=== PATIENT | male | born 1935 | race Caucasian/White ===

== ENCOUNTER 2017-11-13 10:40 | Day surgery (SDC) | payer OTHER ==
--- NOTE | 2017-11-12 09:23 | RAD REPORT ---
EXAM DESCRIPTION: RADOP - Outpt Chest Pa/Lat (2 Views) - 11/12/2017 8:36 am CLINICAL HISTORY: Preop for bladder surgery COMPARISON: None FINDINGS: The lungs appear clear of acute infiltrate. The heart is normal size. IMPRESSION: No acute abnormality is displayed
--- NOTE | 2017-11-13 07:39 | EKG ---
Test Date: 2017-11-12 Test Time: 08:22:52 [employer] Manager: DAVDI MEASUREMENT RESULTS: Intervals: Rate: 70 AR: 144 QRSD: 90 QT: 368 QTc: 397 [place]: P: 29 AR: 144 QRS: 36 T: 43 INTERPRETIVE STATEMENTS: Normal sinus rhythm Normal ECG No previous ECG available for comparison Electronically Signed On 11-13-17 07:35:15 CDT by Mor Shirley
[2017-11-13] MEDS ORDERED: NA CHLORIDE 0.9% 1,000 ML ONE ×2 (11:17→13:48)
[2017-11-13] MEDS ORDERED: GENTAMICIN 80 MG/100 ML BAG 80 MG/100 ML BAG IV ONE (11:17)
[2017-11-13] MEDS ORDERED: PROPOFOL 200 MG/20 ML VIAL IV ONE (11:55)
[2017-11-13] MEDS ORDERED: FENTANYL CITR 100 MCG/2 ML ONE (11:55)
[2017-11-13] MEDS ORDERED: LIDOCAINE 2% MPF 5 ML VIAL ONE (11:55)
[2017-11-13] MEDS ORDERED: KETOROLAC 30 MG/ML INJ ONE (13:03)
[2017-11-13] MEDS ORDERED: OXYBUTYNIN CHLORIDE 5 MG TAB ONE (14:25)
== END 2017-11-13 14:33 | disposition home or self-care (01) ==
LOC: OR 10:40
PROVIDERS: ATTEND Urology
PROC: 0T7D8DZ Dilation of Urethra with Intraluminal Device, Via Natural or Artificial Opening Endoscopic (ICD-10-PCS; principal; 2017-11-13 12:00)
DX: N40.1 Benign prostatic hyperplasia with lower urinary tract symptoms (principal); R39.12 Poor urinary stream; E11.9 Type 2 diabetes mellitus without complications; I10 Essential (primary) hypertension; E78.5 Hyperlipidemia, unspecified; K21.9 Gastro-esophageal reflux disease without esophagitis; E07.9 Disorder of thyroid, unspecified; M19.90 Unspecified osteoarthritis, unspecified site; Z88.3 Allergy status to other anti-infective agents; Z88.6 Allergy status to analgesic agent; Z88.8 Allergy status to other drugs, medicaments and biological substances; Z83.6 Family history of other diseases of the respiratory system
CPT/HCPCS: 52441; 52442 ×3; 71046; 82962 ×2; 93005; J1580; J3010; J7030

== ENCOUNTER 2020-12-21 05:43 | Inpatient (IN) | payer OTHER ==
--- NOTE | 2020-12-15 12:27 | RAD REPORT ---
EXAM DESCRIPTION: RAD - Chest Pa And Lat (2 Views) - 12/15/2020 12:20 pm CLINICAL HISTORY: preop Chest pain. COMPARISON: <Comparisons> FINDINGS: The lungs are emphysematous but clear. The heart size with a tortuous thoracic aorta. No d isplaced fractures. IMPRESSION: Mild diffuse COPD.
[2020-12-15 12:41] LABS: Potassium 4.6 mmol/L (3.5-5.1)
[2020-12-15 12:44] LABS: Absolute Lymphocytes (CBC) 1.2 K/uL (0.7-4.9); Basophils % 0.7 % (0-1.3); Lymphocytes % 22.2 % (15.3-44.8); MPV 9.3 fL (7.6-11.3); RBC Red Blood Cell Count 4.49 M/uL (4.33-5.43)
[2020-12-15 12:47] LABS: Protime INR 1.05
[2020-12-21] MEDS ORDERED: NA CHLORIDE 0.9% 1,000 ML ONE ×2 (06:23→08:39)
[2020-12-21] MEDS ORDERED: CEFAZOLIN/SWI 2gm 2 GM/20 ML SYR ONE (06:23)
[2020-12-21] MEDS ORDERED: dexAMETHasone 10 MG/ML VIAL ONE ×4 (06:31→08:57)
[2020-12-21] MEDS ORDERED: propofoL 200 MG/20 ML VIAL IV ONE ×2 (06:31→07:42)
[2020-12-21] MEDS ORDERED: FENTANYL CITR 100 MCG/2 ML ONE ×3 (06:31→11:28)
[2020-12-21] MEDS ORDERED: LIDOCAINE 1% MPF 5 ML VIAL ONE ×3 (06:31→08:49)
[2020-12-21] MEDS ORDERED: MIDAZOLAM HCL 2 MG/2 ML INJ ONE ×2 (06:31→07:42)
[2020-12-21] MEDS ORDERED: LIDOCAINE 2% MPF 5 ML VIAL ONE ×2 (06:31→07:42)
[2020-12-21] MEDS ORDERED: NS 0.9% VIAL 10 ML ONE ×2 (06:32→08:47)
[2020-12-21] MEDS ORDERED: CELECOXIB 100 MG CAPSULE ONE (06:42)
[2020-12-21] MEDS ORDERED: methocarbamoL 500 MG TAB ONE (06:42)
[2020-12-21] MEDS ORDERED: ACETAMINOPHEN 500 MG TAB ONE (06:42)
[2020-12-21] MEDS ORDERED: BUPIVACAINE 0.25% PF 30 ML VIAL ONE (06:49)
[2020-12-21] MEDS ORDERED: Ringers Lactate 0 ML IV ONE (07:35)
[2020-12-21] MEDS ORDERED: HYDROMORPHONE HCL 1 MG/ML INJ ONE ×2 (07:39→07:42)
[2020-12-21] MEDS ORDERED: NS 0.9% VIAL 0 ML ONE (07:42)
[2020-12-21] MEDS ORDERED: TRANEXAMIC ACID 1,000 MG in NA CHLORIDE 0.9% 50 ML IV SCH (08:00)
[2020-12-21] MEDS ORDERED: KETAMINE HCL 500 MG/5 ML VIAL ONE (08:03)
[2020-12-21] MEDS ORDERED: LABETALOL 20 MG/4ML SYRINGE IV ONE (09:29)
--- NOTE | 2020-12-21 10:28 | P.BOP ---
Preoperative diagnosis: right knee osteoarthritis Postoperative diagnosis: same Primary procedure: right total knee arthroplasty Obstetrics/Gynecology Nurse: NONE,NONE Estimated blood loss: 20 cc Specimen: right knee bone remnants Findings: see dictation Anesthesia: General Complications: None Implants: Biomet Angela Persona 10 STD CR femur, G tibia, 10 mm CR poly, 35 patella Fluids & blood products: per anesthesia record; TT: 90 mins @ 300 mmHg Transferred to: Recovery Room Condition: Good
[2020-12-21] MEDS ORDERED: ONDANSETRON 4 MG/2 ML VIAL IV PRN (10:30)
[2020-12-21] MEDS ORDERED: DOCUSATE NA 100 MG CAP PO PRN (10:30)
[2020-12-21] MEDS ORDERED: ONDANSETRON 4 MG/2 ML VIAL ONE (10:31)
[2020-12-21 10:59] LABS: Hematocrit 39.8 % (39.6-49.0)
--- NOTE | 2020-12-21 11:30 | RAD REPORT ---
EXAM DESCRIPTION: RAD - Knee Right 2 View - 12/21/2020 10:53 am CLINICAL HISTORY: Post Op COMPARISON: No comparisons FINDINGS: Right total knee arthroplasty is present. Skin maria de jesus are present. Small amount of air an d fluid is present in the joint space. No unexpected postoperative finding.
[2020-12-21 11:42] VITALS: BMI 30.4
[2020-12-21] MEDS: HYDROCODONE/APAP 7.5/325 MG TAB PO PRN ×2 (12:05→21:00)
[2020-12-21] MEDS ORDERED: PNEUMOCOCCAL VACCINE 0.5 ML IMVAC ONE (14:00)
[2020-12-21] MEDS: MORPHINE 2 MG/ML SYR IV PRN (14:33)
[2020-12-21] MEDS: METFORMIN HCL 500 MG TAB PO SCH (16:17)
[2020-12-21] MEDS: CEFAZOLIN/SWI 2gm 2 GM/20 ML SYR IV SCH (16:17)
[2020-12-21] MEDS: lisinopriL 20 MG TAB PO SCH (20:55)
[2020-12-21] MEDS: ATORVASTATIN 40 MG TAB PO SCH (20:58)
[2020-12-21] MEDS ORDERED: HOME MED 1 EA UNK (Omeprazole [Omeprazole] 20 MG Capsule.Dr) PO SCH (21:00)
[2020-12-21] MEDS: PANTOPRAZOLE 40MG TABLET PO SCH (21:00)
[2020-12-21] MEDS ORDERED: GLUCAGON 1 MG/VIAL IM PRN (21:18)
[2020-12-21] MEDS ORDERED: D50W 25 GM/50 ML SYRINGE IV PRN (21:18)
--- NOTE | 2020-12-21 21:22 | P.OP ---
Preoperative diagnosis: right knee osteoarthritis Postoperative diagnosis: right knee osteoarthritis Primary procedure: right total knee arthroplasty Anesthesia: general LMA Estimated blood loss: 20 cc Specimen: right knee bone remnants Findings: see dictation Operative Technique: Indication For Procedure: Rolando is an 85 year-old male presenting to my clinic with signs, symptoms and x-ray findings consistent with a severe right knee osteoarthritis. I discussed with the patient at length risks and benefits associated with operative and nonoperative treatment. He had failed conservative treatment measures and had significant difficulties with ADLs secondary to his pain. We discussed operative treatment and elected to proceed with right total knee arthroplasty. He expressed understanding and elected to proceed with operative treatment. Description Of Procedure: After informed consent was obtained, the patient was identified in the preoperative holding area. The right lower extremity was marked. The patient was then taken to the PACU where he underwent a right lower extremity adductor canal block performed by Anesthesia. He was then taken to the operating room, transferred to the operating table in supine fashion, and placed under general anesthesia. His right lower extremity was then prepped and draped in usual sterile fashion. A time-out was initiated. The correct patient and procedure were confirmed and identified. The patient did receive his preoperative prophylactic antibiotics. The right lower extremity was then exsanguinated and tourniquet was inflated to 300 mmHg. Approximately 15 cm longitudinal incision was made centered over the anterior aspect of the right knee. Dissection was then taken to the extensor mechanism and a medial parapatellar arthrotomy was performed. The patella was everted and dislocated laterally and the knee was flexed in the fat pad. Medial lateral meniscus and ACL were all excised exposing the distal femur. Excess hypertrophic synovium was also excised within the suprapatellar pouch. The patient had an MRI of his right knee preoperatively for surgical planning and creation of cutting blocks. The cutting block was then placed over the distal femur and pins were then placed. The distal femoral cutting block was then placed over the pins. Knee joint was then used to ensure proper depth cut and the distal femur was then cut. The chamfer cutting guide was then placed over the distal end of the femur. Anterior, posterior cuts as well as anterior and posterior chamfer cuts were then made again confirming proper depth of the cut using an Major wing. Excess bone remnants were then sent to pathology for further evaluation. Next, attention was taken to the proximal tibia. A tibial jig and tibial cutting block was then placed on proximal aspect of the right tibia and locked into position. Pins were then placed and alignment guide was then used to confirm proper alignment of the cut and then coronal and sagittal planes. Once this was confirmed, the cutting jig was placed over the pins and the proximal tibia was cut. Sizing trays were then selected and size 10 mm spacer was used and there was good overall balance in flexion and extension. Next, the trial implants were then placed using the size 10 standard CR femur and a size G tibia with an 10 mm poly. There was overall good range of motion and good stability trial implants were then removed. The wound was then irrigated thoroughly with normal saline and the knee was then injected with 30 cc of 0.25% Marcaine both in the posterior capsule and mediallateral gutters as well as quadriceps tendon and periosteum. The tibia was then punched. The femur was drilled. The cement was then prepared on the back table. Cement was then placed first on the tibial surface followed by size G tibia. Excess cement was removed with [place] elevators. Size 10 standard CR femur was then placed on the distal femur after cement was placed on the distal femur. Excess cement was then removed and a size 10 mm trial poly was then placed. The knee was held in extension as the cement hardened. Undersurface of the patella was prepared debriding osteophytes using rongeurs as well as osteophytes had been debrided off the proximal tibia with rongeurs and osteotomes to aid with the medial tightness. Cement was placed on the undersurface of the patella after it was cut and a size 35 patella was placed. Once the cement was hardened, the knee was ranged, there was good overall stability both in flexion, extension and as well as stability with varus and valgus stresses. Trial poly was then removed and a size 10 mm CR poly was then placed and locked into position. The knee was then ranged again. There was good overall range of motion both for flexion and extension with good stability. The wound was then irrigated again thoroughly with normal saline using pulse lavage. Tourniquet was let down. Hemostasis was achieved using Bovie electrocautery. Extensor mechanism was then approximated using a #1 Vicryl bothin interrupted and running fashion. The fascia was then approximated using 0 Vicryl. Subcutaneous tissue was approximated with a 2-0 Vicryl. Skin was approximated using maria de jesus. Sterile dressings were applied. The patient was awakened and transferred back in stable condition Complications: None Implants: Biomet Angela Persona 10 STD CR femur, G tibia, 35 mm patella, 10 mm CR fabio Fluids & blood products: per anesthesia record; 90 mins @ 300 mmHg Transferred to: Recovery Room Condition: Good
[2020-12-21] MEDS: INSULIN -REGULAR HUMAN 50 UNIT/0.5 ML ML SQ SCH (21:56)
[2020-12-22] MEDS: HYDROCODONE/APAP 7.5/325 MG TAB PO PRN ×4 (00:31→20:47)
[2020-12-22] MEDS: CEFAZOLIN/SWI 2gm 2 GM/20 ML SYR IV SCH ×2 (00:32→07:57)
[2020-12-22] MEDS: LEVOTHYROXINE SOD 0.1 MG TAB PO SCH (05:35)
[2020-12-22] MEDS: ENOXAPARIN 30 MG/0.3 ML SQ SCH ×2 (05:36→17:10)
[2020-12-22 05:37] LABS: Absolute Lymphocytes (CBC) 0.9 K/uL (0.7-4.9); Basophils % 0.3 % (0-1.3); Hematocrit 38.7 % (39.6-49.0); Lymphocytes % 7.6 % (15.3-44.8); MPV 9.1 fL (7.6-11.3); RBC Red Blood Cell Count 4.13 M/uL (4.33-5.43)
[2020-12-22 05:53] LABS: Potassium 4.1 mmol/L (3.5-5.1)
[2020-12-22 06:30] LABS: White Blood Cell Scan OK (OK)
[2020-12-22 06:31] LABS: Blood Morphology Comment NOT SEEN (NOT SEEN); Platelet Estimate ADEQ
[2020-12-22] MEDS: MORPHINE 2 MG/ML SYR IV PRN (07:56)
[2020-12-22] MEDS: INSULIN -REGULAR HUMAN 50 UNIT/0.5 ML ML SQ SCH ×4 (07:56→20:44)
[2020-12-22] MEDS: AMLODIPINE 2.5 MG TAB PO SCH (07:57)
[2020-12-22] MEDS: CETIRIZINE HCL 5 MG TABLET PO SCH (07:57)
[2020-12-22] MEDS: PANTOPRAZOLE 40MG TABLET PO SCH ×2 (07:57→20:47)
[2020-12-22] MEDS: lisinopriL 20 MG TAB PO SCH ×2 (07:57→20:46)
[2020-12-22] MEDS: METFORMIN HCL 500 MG TAB PO SCH ×2 (07:57→15:55)
[2020-12-22] MEDS: CELECOXIB 100 MG CAPSULE PO SCH (07:58)
--- NOTE | 2020-12-22 14:04 | P.PN ---
Subjective Date of Service: 12/22/20 Chief Complaint: s/p R TKA Subjective: Ambulating, Improving, Working w/ PT some breakthrough pain this morning; ambulated with PT yesterday Physical Examination - Vital Signs Temperature: 98.5 F Blood Pressure: 113/67 Pulse: 95 Respirations: 17 Pulse Ox (%): 94 - Physical Exam General: Alert, In no apparent distress Musculoskeletal: Other (RLE: dressing c/d/i; +EHL/FHL/GSC/TA; sensation grossly intact distally) - Studies Laboratory Data (last 24 hrs) 12/22/20 05:13: Sodium 135 L, Potassium 4.1, BUN 25 H, Creatinine 1.38 H, Glucose 174 H 12/22/20 05:13: WBC 12.50 H D, Hgb 12.8 L, Hct 38.7 L, Plt Count 220 Assessment And Plan - Plan Rolando is an 86 yo female s/p R TKA POD #1 -Physical therapy to mobilize the patient; he will be weightbearing as tolerated of the right lower extremity -lovenox for DVT prophylaxis -likely d/c home tomorrow
[2020-12-22] MEDS: ATORVASTATIN 40 MG TAB PO SCH (20:48)
[2020-12-23] MEDS: MORPHINE 2 MG/ML SYR IV PRN (02:58)
[2020-12-23] MEDS: HYDROCODONE/APAP 7.5/325 MG TAB PO PRN (05:15)
[2020-12-23] MEDS: ENOXAPARIN 30 MG/0.3 ML SQ SCH (05:16)
[2020-12-23] MEDS: LEVOTHYROXINE SOD 0.1 MG TAB PO SCH (05:16)
[2020-12-23] MEDS: CETIRIZINE HCL 5 MG TABLET PO SCH (07:49)
[2020-12-23] MEDS: AMLODIPINE 2.5 MG TAB PO SCH (07:49)
[2020-12-23] MEDS: METFORMIN HCL 500 MG TAB PO SCH (07:49)
[2020-12-23] MEDS: lisinopriL 20 MG TAB PO SCH (07:49)
[2020-12-23] MEDS: PANTOPRAZOLE 40MG TABLET PO SCH (07:50)
[2020-12-23] MEDS: CELECOXIB 100 MG CAPSULE PO SCH (07:50)
[2020-12-23] MEDS: INSULIN -REGULAR HUMAN 50 UNIT/0.5 ML ML SQ SCH (07:51)
[2020-12-23 08:11] VITALS: O2SAT 96
[2020-12-23 09:03] VITALS: BP 119/69; TEMP 97.7
--- NOTE | 2020-12-23 09:07 | P.DS ---
Admission Date: 12/21/20 Discharge Date: 12/23/20 Disposition: DC HOME/HOME HEALTH CARE Discharge Condition: GOOD Reason for Admission: s/p R TKA Consultations: none Procedures: right total knee arthroplasty on 12/21/2020 Brief History of Present Illness: Rolando is an 85 yo male w/ history of DM, HTN admitted to the floor s/p right total knee arthoplasty Hospital Course: Patient was admitted to the floor in stable condition. Physical therapy was consulted and mobilized patient without complication. Patient was on lovenox for DVT prophylaxis while in the hospital and discharged with Xarelto to start on 12/24/2020. He was discharged in stable condition. Vital Signs/Physical Exam: Temp Pulse Resp BP Pulse Ox 97.7 F 123 H 20 119/69 96 12/23/20 08:00 12/23/20 08:00 12/23/20 08:00 12/23/20 08:00 12/23/20 08:00 Laboratory Data at Discharge: WBC 12.50 K/uL (4.3-10.9) H D 12/22/20 05:13 Hgb 12.8 g/dL (13.6-17.9) L 12/22/20 05:13 Hct 38.7 % (39.6-49.0) L 12/22/20 05:13 Plt Count 220 K/uL (152-406) 12/22/20 05:13 PT 12.1 SECONDS (9.5-12.5) 12/15/20 12:06 INR 1.05 12/15/20 12:06 APTT 26.7 SECONDS (24.3-36.9) 12/15/20 12:06 Sodium 135 mmol/L (136-145) L 12/22/20 05:13 Potassium 4.1 mmol/L (3.5-5.1) 12/22/20 05:13 BUN 25 mg/dL (7-18) H 12/22/20 05:13 Creatinine 1.38 mg/dL (0.55-1.3) H 12/22/20 05:13 Glucose 174 mg/dL (74-106) H 12/22/20 05:13 Home Medications: Atorvastatin Calcium [Lipitor] 40 mg PO BEDTIME 11/12/17 Cetirizine HCl [Zyrtec] 10 mg PO DAILY 11/12/17 Krill/Om-3/Dha/Epa/Phospho/Ast [Krill Oil 500 mg Softgel] 1 each PO DAILY 11/12/17 Levothyroxine [Synthroid*] 100 mcg PO [id number] 11/12/17 Loperamide [Imodium*] 2 mg PO UD PRN 11/12/17 Metformin HCl [Glucophage*] 500 mg PO BIDWM 11/12/17 Multivit-Min/FA/Lycopen/Lutein [Centrum Silver Men Tablet] 1 each PO DAILY 11/12/17 Omeprazole 20 mg PO BID 11/12/17 lisinopriL [Prinivil*] 20 mg PO BID 11/12/17 Amlodipine [Norvasc*] 2.5 mg PO DAILY 12/15/20 Hydrocodone 7.5/APAP 325 [[place] 7.5/325 mg*] 1 tab PO Q4H PRN tab 12/23/20 Physician Discharge Instructions: keep dressing clean and dry; begin Xarelto tomorrow, December 24, 2020 in the AM. May be WBAT; use NANCI hose for 2 weeks to aid with swelling Diet: ADA Activity: Weight bearing as tolerated Followup: Sapphire Hawkins MD [Primary Care Provider] - Magdaleno Lozada MD [ACTIVE - CAN ADMIT] - 1-2 Weeks
== END 2020-12-23 10:15 | disposition home or self-care (01) | DRG 470 ==
LOC: OR 05:43 → 2ND 10:59
PROVIDERS: ADMIT Orthopaedic Surgery Sports Medicine; ATTEND Orthopaedic Surgery Sports Medicine
PROC: 0SRC0J9 Replacement of Right Knee Joint with Synthetic Substitute, Cemented, Open Approach (ICD-10-PCS; principal; 2020-12-21 07:30)
DX: M17.11 Unilateral primary osteoarthritis, right knee (principal); E78.5 Hyperlipidemia, unspecified; I10 Essential (primary) hypertension; E11.9 Type 2 diabetes mellitus without complications; K21.9 Gastro-esophageal reflux disease without esophagitis; Z79.84 Long term (current) use of oral hypoglycemic drugs; Z79.890 Hormone replacement therapy; Z79.899 Other long term (current) drug therapy; Z79.82 Long term (current) use of aspirin; Z88.1 Allergy status to other antibiotic agents; Z88.5 Allergy status to narcotic agent; Z88.8 Allergy status to other drugs, medicaments and biological substances; Z20.822 Contact with and (suspected) exposure to COVID-19
CPT/HCPCS: 36415; 71046; 80048; 82947; 83605; 85014; 85018; 85025; 85610; 85730; 88304; 88311; 93005; 94010; 97116; 97139; 97161; 97530; J0690; J1100; J1170; J1650; J2250; J2270; J2405; J2704; J3010; J7030; J7120; U0002